=== PATIENT | female | born 1965 | race Caucasian/White ===

== ENCOUNTER 2024-01-12 15:43 | Outpatient (CLI) | payer OTHER, SELFPAY | END 2024-01-12 15:44 | disposition home or self-care (01) | LOC: NFLDREF 01-15 08:30 | PROVIDERS: Visit Provider Physician Assistant | DX: N76.0 Acute vaginitis (principal); J02.9 Acute pharyngitis, unspecified; N39.0 Urinary tract infection, site not specified; J02.0 Streptococcal pharyngitis | CPT/HCPCS: 87086; 87186 ==

== ENCOUNTER 2024-03-17 10:44 | Outpatient (CLI) | payer OTHER, SELFPAY ==
[2024-03-27 07:26] LABS: HPV Source Cervix; HPV, High Risk by TMA Not Detected
== END 2024-03-17 10:45 | disposition home or self-care (01) ==
PROVIDERS: PCP Emergency Medicine; Visit Provider Emergency Medicine
DX: I10 Essential (primary) hypertension (principal); Z13.6 Encounter for screening for cardiovascular disorders; Z12.4 Encounter for screening for malignant neoplasm of cervix; Z11.51 Encounter for screening for human papillomavirus (HPV)
CPT/HCPCS: 80048; 80061; 87624; 87625; 88141; 88142

== ENCOUNTER 2024-08-08 10:54 | Outpatient (CLI) | payer OTHER, SELFPAY ==
--- NOTE | 2024-08-08 11:57 | P.ANES_ITS ---
Anesthesia Charges Start Date/Time Anesthesia Start Date: 08/08/24 Anesthesia Start Time: 11:35 Stop Date/Time Anesthesia Stop Date: 08/08/24 Anesthesia Stop Time: 11:55 Coding CPT Codes CPT Codes: GABRIEL LWR INTST SCR COLSC - [id number] ([id number]) P2 - PATIENT W/MILD SYST DISEASE, QK - VALET SERVICE ATTENDANT 2-4 CNCRNT ANES PROC, QX - ROAD PACKER OPERATOR SVC W/ MD MED DIRECTION
--- NOTE | 2024-08-08 11:57 | W.ANESCHARGE ---
Anesthesia Charges Start Date/Time Anesthesia Start Date: 08/08/24 Anesthesia Start Time: 11:35 Stop Date/Time Anesthesia Stop Date: 08/08/24 Anesthesia Stop Time: 11:55 Coding CPT Codes CPT Codes: GABRIEL LWR INTST SCR COLSC - 73415 ([id number]) P2 - PATIENT W/MILD SYST DISEASE, QK - CRICKET COACH 2-4 CNCRNT ANES PROC, QX - MERCHANDISER SEASONAL SVC W/ MD MED DIRECTION
--- NOTE | 2024-08-08 12:08 | P.ANES_ITS ---
Anesthesia Charges Start Date/Time Anesthesia Start Date: 08/08/24 Anesthesia Start Time: 11:35 Stop Date/Time Anesthesia Stop Date: 08/08/24 Anesthesia Stop Time: 11:55 Coding CPT Codes CPT Codes: GABRIEL LWR INTST SCR COLSC - [id number] ([id number]) P2 - PATIENT W/MILD SYST DISEASE, QK - ROUTE AIDE 2-4 CNCRNT ANES PROC, QX - STERILE PRODUCTS PROCESSOR SVC W/ MD MED DIRECTION
--- NOTE | 2024-08-08 12:08 | W.ANESCHARGE ---
Anesthesia Charges Start Date/Time Anesthesia Start Date: 08/08/24 Anesthesia Start Time: 11:35 Stop Date/Time Anesthesia Stop Date: 08/08/24 Anesthesia Stop Time: 11:55 Coding CPT Codes CPT Codes: GABRIEL LWR INTST SCR COLSC - [id number] ([id number]) P2 - PATIENT W/MILD SYST DISEASE, QK - HEMP FIBER TAKER OFF 2-4 CNCRNT ANES PROC, QX - WIRE RIGGER SVC W/ MD MED DIRECTION
== END 2024-08-08 10:55 | disposition home or self-care (01) ==
LOC: OP CLINIC 10:55
PROVIDERS: PCP Emergency Medicine; Visit Provider Surgery
DX: Z12.11 Encounter for screening for malignant neoplasm of colon (principal); Z80.0 Family history of malignant neoplasm of digestive organs
CPT/HCPCS: 00812; 45378; J2704